=== PATIENT | female | born 1965 | race American Indian/Alaskan Native ===

== ENCOUNTER 2016-08-03 13:32 | Emergency (ER) | payer OTHER ==
[2016-08-03 13:51] VITALS: BP 157/93
--- NOTE | 2016-08-03 16:46 | Emergency Department Report ---
ED Fall HPI - General Chief Complaint: Extremity Injury, Upper Stated Complaint: FALL/RT SIDE/LEG PAIN Time Seen by Provider: 08/03/16 16:29 Source: patient Mode of arrival: Ambulatory - History of Present Illness Initial Comments: 50-year-old female past medical history asthma presents with complaint of bilateral knee pain and mild right upper chest wall pain status post mechanical fall. Patient states she was at work yesterday was walking into the direction of a sink there was a puddle of water on the floor and she slipped and fell backward. Patient states she tried to brace herself on a standing art easel. He shouldn't is awake alert and oriented 3 ambulatory not in acute distress states she has minor ache in her knees and very minor ache in her upper right chest wall. Patient denies any pleuritic chest pain. States that pain is 2-3 out of 10. States she has not taken any pain medicine. Patient states that her pain is minor but her employer asked her to come to the ER for a medical exam. Patient states that the pain is very minor and has no reports of shortness of breath did not hit her head during the fall is awake alert and oriented 3 cooperative and fully lucid. Denies any upper or lower extremity paresthesias. Eyes any headache or dizziness. Not sustain any abrasions or lacerations during fall. Patient states she stood up immediately after the fall. MD Complaint: fall Onset/Timin -: days(s) Fall Witnessed: yes, by bystander Place Fall Occurred: work, school Loss of Consciousness: none Prolonged Down Time?: no Location: other Location - Extremities: Left: Knee, Right: Knee Severity: mild Severity scale (0 -10): 3 Quality: aching Context: tripped/slipped Associated Symptoms: denies - Related Data Previous Rx's Medication Instructions Recorded Last Taken Type Albuterol Sulfate [Ventolin HFA] 2 puff IH Q4H PRN #1 hfa.aer.ad 01/15/14 Unknown Rx Prednisone [Prednisone 10 mg 10 mg PO .TAPER #1 tab.ds.pk 01/15/14 Unknown Rx (6-Day Pack, 21 Tabs)] Naproxen [Naproxen TAB] 250 mg PO BID PRN #20 tablet 08/03/16 Unknown Rx Allergies Allergy/AdvReac Type Severity Reaction Status Date / Time No Known Allergies Allergy Verified 01/15/14 00:01 ED Review of Systems ROS: Stated complaint: FALL/RT SIDE/LEG PAIN Other details as noted in HPI Constitutional: denies: chills, fever Eyes: denies: eye pain, eye discharge, vision change ENT: denies: ear pain, throat pain Respiratory: denies: cough, shortness of breath, wheezing Cardiovascular: denies: chest pain, palpitations Endocrine: no symptoms reported Gastrointestinal: denies: abdominal pain, nausea, diarrhea Genitourinary: denies: urgency, dysuria, discharge Musculoskeletal: denies: back pain, joint swelling, arthralgia Skin: denies: rash, lesions Neurological: denies: headache, weakness, paresthesias Psychiatric: denies: anxiety, depression Hematological/Lymphatic: denies: easy bleeding, easy bruising ED Past Medical Hx - Past Medical History Previous Medical History?: No - Surgical History Past Surgical History?: No - Social History Smoking Status: Never Smoker Substance Use Type: Alcohol - Medications Home Medications: Home Medications Medication Instructions Recorded Confirmed Last Taken Type Albuterol Sulfate [Ventolin HFA] 2 puff IH Q4H PRN #1 hfa.aer.ad 01/15/14 Unknown Rx Prednisone [Prednisone 10 mg 10 mg PO .TAPER #1 tab.ds.pk 01/15/14 Unknown Rx (6-Day Pack, 21 Tabs)] Naproxen [Naproxen TAB] 250 mg PO BID PRN #20 tablet 08/03/16 Unknown Rx ED Physical Exam - General Limitations: No Limitations General appearance: alert, in no apparent distress - Head Head exam: Present: atraumatic, normocephalic - Eye Eye exam: Present: normal appearance, PERRL, EOMI - ENT ENT exam: Present: mucous membranes moist - Neck Neck exam: Present: normal inspection - Respiratory Respiratory exam: Present: normal lung sounds bilaterally, chest wall tenderness (mild right upepr chest wall pain, no visible contusion, minimal). Absent: respiratory distress - Cardiovascular Cardiovascular Exam: Present: regular rate, normal rhythm. Absent: systolic murmur, diastolic murmur, rubs, gallop - GI/Abdominal GI/Abdominal exam: Present: soft, normal bowel sounds - Extremities Exam Extremities exam: Present: normal inspection - Back Exam Back exam: Present: normal inspection - Neurological Exam Neurological exam: Present: alert, oriented X3, CN II-XII intact, normal gait - Psychiatric Psychiatric exam: Present: normal affect, normal mood - Skin Skin exam: Present: warm, dry, intact, normal color. Absent: rash ED Course Vital Signs 08/03/16 13:47 Temperature 98.1 F Pulse Rate 65 Respiratory 18 Rate Blood Pressure 157/93 O2 Sat by Pulse 100 Oximetry ED Medical Decision Making - Medical Decision Making A/P: Mechanical fall 1-patient sustained no severe injury no injury to head or neck, patient has extremely minimal costal margin pain on right side. Patient states it is 2 out of 10 and has not taken anything yet for the pain. Patient is fully ambulatory without assistance. Has no pleuritic chest pain or shortness of breath. 2-naproxen when necessary, JACKLYN therapy for the knees 3-PRIMARY CARE DOCTOR f/u Critical care attestation.: If time is entered above; I have spent that time in minutes in the direct care of this critically ill patient, excluding procedure time. ED Disposition Clinical Impression: Fall Qualifiers: Encounter type: initial encounter Qualified Code(s): W19.XXXA - Unspecified fall, initial encounter Knee contusion Qualifiers: Encounter type: initial encounter Laterality: unspecified laterality Qualified Code(s): S80.00XA - Contusion of unspecified knee, initial encounter Disposition: DISCHARGED TO HOME OR SELFCARE Is pt being admited?: No Does the pt Need Aspirin: No Condition: Stable Instructions: RICE Therapy (ED), Contusion in Adults (ED) Prescriptions: Naproxen [Naproxen TAB] 250 mg PO BID PRN #20 tablet PRN Reason: Pain Referrals: JYOTI CHEN MD [Staff Physician] - 3-5 Days [facility] [Provider Group] - 3-5 Days Forms: Work/School Release Form(ED)
== END 2016-08-03 16:59 | disposition home or self-care (01) ==
LOC: ED 13:32
DX: S80.02XA Contusion of left knee, initial encounter (principal); S80.01XA Contusion of right knee, initial encounter; R07.89 Other chest pain; W01.0XXA Fall on same level from slipping, tripping and stumbling without subsequent striking against object, initial encounter; Y93.01 Activity, walking, marching and hiking; Y99.8 Other external cause status; Y92.218 Other school as the place of occurrence of the external cause
CPT/HCPCS: 99282